=== PATIENT | female | born 1940 | race African-American/Black ===

== ENCOUNTER 2024-02-29 10:22 | Emergency (ER) | payer MEDICARE, MEDICAID ==
[~2024-02-29] VITALS: Ht 170.2 cm; Wt 85.0 kg
[~2024-02-29 10:22] MED LIST: ACET-2247 PO; APIX2.5T PO; ATOR40TA71 PO; BISA10SU11 PR; CINA30 PO; DOCU-385 PO; FAMO20 PO; FOLI0.8T22 PO; MIDO5TAB29 PO; ONDA-104 PO
[2024-02-29 10:45] VITALS: TEMP 97.8
[2024-02-29] MEDS: MORPHINE SULFATE 2 MG/ML SYRINGE IVP ONE (11:26)
[2024-02-29 13:26] LABS: CALCIUM, TOTAL 10.8 mg/dL (8.8-10.5); CREATININE 6.14 mg/dL (0.60-1.30)
[2024-02-29 13:31] LABS: BASOPHILS % (AUTO) 1.4 % (0.0-2.0); EOSINOPHILS % (AUTO) 3.5 % (1.0-6.0); HEMATOCRIT 36.4 % (36-46); HEMOGLOBIN 11.2 g/dL (12.0-16.0); LYMPHOCYTES # (AUTO) 2.1 K/uL (1.0-4.8); LYMPHOCYTES % (AUTO) 28.1 % (22.0-44.0); MEAN CORPUSCULAR HEMOGLOBIN 29.1 pg (26.0-34.0); MEAN CORPUSCULAR HGB CONC 30.7 G/dL (31.0-37.0); MEAN CORPUSCULAR VOLUME 95 fL (80-100); MONOCYTES # (AUTO) 0.4 K/uL (0.1-1.0); MONOCYTES % (AUTO) 5.2 % (2.0-9.0); NEUTROPHILS # (AUTO) 4.5 K/uL (1.8-7.7); NEUTROPHILS % (AUTO) 61.8 % (40.0-70.0); PLATELET COUNT (AUTO) 199 K/uL (150-450); RED BLOOD CELL COUNT(AUTO) 3.83 MIL/uL (4.00-5.20); RED CELL DISTRIBUTION WIDTH 19.6 % (11.5-14.5); WHITE BLOOD COUNT (AUTO) 7.3 K/uL (4.5-11.0)
[2024-02-29 13:32] LABS: ALBUMIN 2.9 g/dL (3.4-5.0); BILIRUBIN,TOTAL 0.5 mg/dL (0.1-1.0); TOTAL PROTEIN, SERUM 8.9 g/dL (6.4-8.2)
[2024-02-29] MEDS: FOLIC ACID/VIT B COMPLEX AND C TABLET PO SCH (15:35)
[2024-02-29 15:37] VITALS: BP 136/68; PULSE 72; RESP 16
== END 2024-02-29 19:24 | disposition admitted as inpatient to this hospital (09) ==
LOC: EMS 10:41
DX: M25.552 Pain in left hip (principal); I50.9 Heart failure, unspecified; E11.22 Type 2 diabetes mellitus with diabetic chronic kidney disease; I48.91 Unspecified atrial fibrillation; N18.6 End stage renal disease; Z99.2 Dependence on renal dialysis
CPT/HCPCS: 99285; 96374; 72192; 80053; 85025; 36415; 73503; 73552; 73562; 93005; J2270